=== PATIENT | male | born 1960 | race Caucasian/White ===

== ENCOUNTER → 2017-12-11 09:17 | Outpatient (CLI) | payer OTHER, MEDICARE ==
[2015-01-19 09:48] VITALS: BMI 36.7
[~2017-12-11 09:17] MED LIST: AMBIEN10 MG PO; BACTROBAN NASAL1 GM NASAL; COLACE100 MG PO; DILAUDID8 MG PO; ELIQUIS2.5 MG PO; LEVOTHROID75 MCG PO; LORCET 10/650 T1 TAB PO; MULTI-DAY VITAM1 TAB PO; PERCOCET 10/3251 TA1 PO; PRINZIDE 20/12.1 TAB PO; SOMA350 MG PO; VITAMIN D2000 UNIT; VITAMIN D2000 UNIT PO; XANAX1 MG PO
== END | disposition home or self-care (01) ==
LOC: D.MRI 09:17
DX: M25.552 Pain in left hip (principal)

== ENCOUNTER → 2018-01-12 08:38 | Outpatient (CLI) | payer OTHER, MEDICARE | END | disposition home or self-care (01) | LOC: D.SP 08:38 | DX: M25.552 Pain in left hip (principal); G89.29 Other chronic pain; Z01.812 Encounter for preprocedural laboratory examination ==

== ENCOUNTER → 2018-04-13 12:17 | Outpatient (CLI) | payer OTHER, MEDICARE ==
[2015-01-19 09:48] VITALS: BMI 36.7
--- NOTE | ~2018-04-13 | HEMODYNAMI ---
PATIENT:YESENIA BYRNES MEDICAL RECORD: [id number] : 58 LOCATION:[facility] ADMISSION DATE: 04/13/18 Generatedon:04/13/201813:02 Patient name: YESENIA BYRNES Patient #: [id number] SSN: DO B: 1960 Date of study: 04/13/2018 Page: Of Hemodynamic Procedure Report Patient Data Patient Demographics Procedure consent was obtained First Name: YESENIA Gender: Male Last Name: FITZ : 1960 Middle Initial: ROSANNA Age: 58 year(s) Patient #: [id number] Race: Unknown Additional ID: [id number] Contact details [address]: [address] [place] [address] [place] State: [place] City: [place] Zip code: [address] Past Medical History Allergies: No known allergies Admission Admission Data Admission Date: 04/13/2018 Admission Time: 12:17 Procedure Procedure Types Cath Procedure Peripheral Cath Diagnostic Procedure Miscellaneous Aspiration/Injection (Joint) Procedure Description Procedure Date Procedure Date: 04/13/2018 Procedure Start Time: 12:48 Procedure Staff Name Function Charlie Pope MD Performing Physician Jill Cross RT Filter Washer And Presser Vivi Martinez RN Nurse Francisco J Denton RT Scrub Procedure Data Cath Procedure Fluoroscopy Diagnostic fluoroscopy Total fluoroscopy Time: 0 time: 0 min min Diagnostic fluoroscopy Total fluoroscopy dose: 0 dose: 0 mGy mGy Hemodynamics Rest Pre Cath Intra NCS Post Cath Procedure Log Time Note 12:37:22 Time tracking: Regular hours (M-F 7:00 - 5:00) 12:37:51 Signed procedure consent form obtained from patient. 12:37:58 Pre-procedure instructions explained to patient. 12:37:58 Pre-op teaching completed and patient verbalized understanding. 12:38:26 Left Hip was prepped with chlora-prep and draped in sterile fashion. 12:38:33 Is patient on blood thinner?No 12:38:50 Patient allergic to No known allergies 12:38:59 - 12:45:39 Physician arrived 12:47:41 --------ALL STOP TIME OUT------ 12:47:42 Final Timeout: patient, procedure, and site verified with staff and physician. All members of the team are in agreement. 12:48:06 Procedure started. 12:48:07 Full Disclosure recording started 12:48:17 Local anesthetic to Left Hip with Lidocaine 1% by Charlie Pope MD.INITIAL ACCESS ONLY 12:58:30 Procedure ended.(Physican Out) 13:01:03 Fluoroscopy time 00.00 minutes. 13:01:06 Fluoroscopy dose: 0 mGy 13:01:06 Flurop Dose total: 0 13:01:12 Procedure and supply charges have been captured, reviewed, submitted an d are correct. Signature Audit [place] Stage Time Signature Unsigned Intra-Procedure 04/13/2018 Jill Cross 1:02:41 PM RT(R) [facility] [address] [place] [address]
== END | disposition home or self-care (01) ==
LOC: D.SP 04-06 13:00 → D.RAD 13:00 → D.SP 13:00
PROVIDERS: ATTEND Clinical Nurse Specialist Family Health
DX: M16.12 Unilateral primary osteoarthritis, left hip (principal)

== ENCOUNTER → 2018-04-17 11:12 | Outpatient (CLI) | payer OTHER, MEDICARE ==
[2015-01-19 09:48] VITALS: BMI 36.7
== END | disposition home or self-care (01) ==
LOC: D.MRI 11:12
PROVIDERS: ATTEND Clinical Nurse Specialist Family Health
DX: M25.511 Pain in right shoulder (principal)

== ENCOUNTER 2018-05-10 09:43 | Day surgery (SDC) | payer OTHER, MEDICARE ==
[~2018-05-10] VITALS: Ht 182.9 cm; Wt 130.2 kg
[~2018-05-10 09:43] MED LIST changes: +ASPIRIN EC81 M1 PO; +FLOMAX0.4 MG PO; +HYDROCODON-ACE1 EA10 PO; +MOVANTIK25 MG PO; +PROSCAR5 MG PO; +THEREMS-M1 TAB PO; +VITAMIN B-121000 MCG PO; +XANAX0.5 MG PO; -XANAX1 MG PO
[2018-05-10 10:13] LABS: HEMATOCRIT 43.5 % (42.0-54.0); HEMOGLOBIN 15.5 g/dL (13.5-17.5); MCH 33.6 pg (26.0-34.0); MCHC 35.6 g/dL (31.0-37.0); MCV 94.4 fL (80.0-100.0); MEAN PLATELET VOLUME 9.2 fL (7.4-10.4); RBC 4.61 10x6/uL (4.20-6.10); RDW 12.6 % (11.5-14.5); WBC 4.6 10x3/uL (4.8-10.8)
[2018-05-10 10:19] LABS: CALC OSMOLALITY 278 mosm/kg (275-300); CALCIUM 9.2 mg/dL (8.5-10.1); CARBON DIOXIDE 27.6 mmol/L (21.0-32.0); CHLORIDE - SERUM 103 mmol/L (98-107); GLUCOSE 107 mg/dL (74-106); POTASSIUM - SERUM 4.1 mmol/L (3.5-5.1); SODIUM 139 mmol/L (136-145); UREA NITROGEN 15 mg/dL (7-18); eGFR NON AFRICAN AMERICAN 81 mL/min (90-120)
[2018-05-10 12:08] VITALS: BP 111/69; Ht 182.9 cm; Wt 130.2 kg
[2018-05-10] MEDS ORDERED: PERCOCET 10-321 EAC1 PO (15:24)
--- NOTE | 2018-05-24 11:33 | OP ---
PATIENT NAME: YESENIA BYRNES MEDICAL RECORD: [id number] :58 LOCATION:[facility] ADMISSION DATE: SURGEON: MAGALIE JOHNSON MD DATE OF OPERATION: 05/10/2018 PREOPERATIVE DIAGNOSES: Rotator cuff tear of the right shoulder with impingement syndrome. POSTOPERATIVE DIAGNOSES: Rotator cuff tear of the right shoulder with impingement syndrome. PROCEDURES: 1. Open rotator cuff repair. 2. Arthroscopic distal clavicle excision done through separate incision. 3. Arthroscopic subacromial decompression with acromioplasty and bursectomy. SURGEON: Magalie Johnson MD FLAT DRIER: ARBEN Moser INTRAOPERATIVE COMPLICATIONS: None. SUMMARY OF PATHOLOGIC FINDINGS: The patient unfortunately had very large rotator cuff tear more so than was appreciated on the MR, requiring a mini arthrotomy for better repair and double row fixation laterally. OPERATIVE SUMMARY IN DETAIL: After obtaining the appropriate preoperative orthopedic surgery consent as well as anesthetic consultation, evaluation, and clearance, the patient was brought to the operating room and placed on the operating table in supine position. After general laryngeal mask airway was administered, the patient was placed in left lateral decubitus position. All pressure points were well padded to include down leg peroneal pad as well as axillary roll. The patient was held firmly to the operating table using the vacuum pack suction system, that thing. The patient's right upper extremity and shoulder were then prepped and draped in routine sterile fashion. The arm was held in Arthrex traction boom at 30 degrees of forward flexion, 30 degrees of abduction with 10 pounds of traction laterally. Arthroscopy was established in the glenohumeral joint from posterior portal. Anterior portal was established in the anterior safe interval. Diagnostic arthroscopy showed the patient to have very large rotator cuff tear. Biceps tendon was still in relatively good condition with some tendinopathy; however, no full thickness tearing. Transarthroscopic rotator cuff tear portal was created through which decortication was carried out along with debridement of portions of nonviable-appearing rotator cuff tissue. Attention then turned to the subacromial space. While on subacromial space, the [place] tissue ablation system was utilized to denude the undersurface of the acromion of all soft tissue elements and released the coracoacromial ligament. A 5-0 barrel bur was used for acromioplasty at the level of acromioclavicular joint. Then under separate arthroscopic anterior portal under direct arthroscopic visualization, distal clavicle was excised for 1 cm. Having completed this, attention was then turned to the rotator cuff. Further evaluation and further decortication, then made the decision to proceed with open repair as the split apex was approximately at the labral edge. Small incision was made and then the labrum was reapproximated with regular FiberWire in a baseball stitch fashion. Further decortication was again carried out and then an Arthrex SpeedBridge was utilized OPERATIVE REPORT [id number] YESENIA BYRNES with double row fixation for excellent fixation of the rotator cuff over the supraspinatus tendon. At this point, the small arthrotomy was closed with #2 Vicryl followed by skin kriss, T3 in the ER. Sterile dressings were applied. The patient was awakened and taken to the recovery room in stable condition. All final needle and sponge counts were correct. TRANSINT:[id number] Voice Confirmation ID: [id number] DOCUMENT ID: [id number] ALEX MORGAN, MAGALIE PATHAK at 1133 CC: [id number] DICTATION DATE: 05/23/18 1735 COMMUNITY OUTREACH ADVOCATE: 05/24/18 0433 [facility] 05/10/18 [place] [id number] [place] [address]
== END 2018-05-10 18:05 | disposition home or self-care (01) ==
LOC: D.OPS 09:43 → D.PAN 14:30 → D.OPS 15:30
PROVIDERS: Anesthesiology; ATTEND Orthopaedic Surgery
DX: M75.111 Incomplete rotator cuff tear or rupture of right shoulder, not specified as traumatic (principal); M75.41 Impingement syndrome of right shoulder; Z01.812 Encounter for preprocedural laboratory examination

== ENCOUNTER → 2018-06-25 06:44 | Outpatient (CLI) | payer OTHER, MEDICARE ==
[2018-05-10 12:08] VITALS: BMI 39.0
[~2018-06-25 06:44] MED LIST changes: +PERCOCET 10-321 EAC1 PO
== END | disposition home or self-care (01) ==
LOC: D.MRI 06-22 09:00
PROVIDERS: ATTEND Orthopaedic Surgery
DX: M25.512 Pain in left shoulder (principal)

== ENCOUNTER 2018-07-17 08:00 | Outpatient (CLI) | payer OTHER, MEDICARE ==
[2018-05-10 12:08] VITALS: BMI 39.0
[2018-07-17] MEDS ORDERED: SOMA350 MG PO (09:42)
[2018-07-17 10:29] LABS: HEMATOCRIT 39.8 % (42.0-54.0); HEMOGLOBIN 13.9 g/dL (13.5-17.5); MCH 32.4 pg (26.0-34.0); MCHC 34.9 g/dL (31.0-37.0); MCV 92.8 fL (80.0-100.0); MEAN PLATELET VOLUME 9.4 fL (7.4-10.4); RBC 4.29 10x6/uL (4.20-6.10); RDW 13.2 % (11.5-14.5); WBC 3.7 10x3/uL (4.8-10.8)
[2018-07-17 10:38] LABS: CALC OSMOLALITY 272 mosm/kg (275-300); CALCIUM 9.8 mg/dL (8.5-10.1); CARBON DIOXIDE 31.2 mmol/L (21.0-32.0); CHLORIDE - SERUM 101 mmol/L (98-107); GLUCOSE 110 mg/dL (74-106); POTASSIUM - SERUM 4.2 mmol/L (3.5-5.1); SODIUM 136 mmol/L (136-145); UREA NITROGEN 13 mg/dL (7-18); eGFR NON AFRICAN AMERICAN 81 mL/min (90-120)
== END 2018-07-17 08:01 | disposition home or self-care (01) ==
LOC: D.OPS 08:00 → D.PAN 07-19 07:30 → EDSTATUS 07-19 07:30
PROVIDERS: Anesthesiology; ATTEND Orthopaedic Surgery
DX: M75.122 Complete rotator cuff tear or rupture of left shoulder, not specified as traumatic (principal); S43.491A Other sprain of right shoulder joint, initial encounter; X58.XXXA Exposure to other specified factors, initial encounter

== ENCOUNTER → 2018-08-03 09:28 | Outpatient (CLI) | payer OTHER, MEDICARE ==
[2018-05-10 12:08] VITALS: BMI 39.0
--- NOTE | ~2018-08-03 | EC ---
PATIENT:YESENIA BYRNES DATE OF SERVICE: 08/03/18 SEX: M MEDICAL RECORD: [id number] DATE OF : 58 LOCATION:[facility] AGE OF PATIENT: 58 ADMISSION DATE: 08/03/18 REFERRING PHYSICIAN: INTERPRETING PHYSICIAN: JASON MCDONOUGH MD ECHOCARDIOGRAM REPORT ECHO CHARGES 4 ECHO COMPLETE Date: 08/03/18 CLINICAL DIAGNOSIS: CP/ABNORMAL EKG/MURMUR H/O HTN ECHOCARDIOGRAPHIC MEASUREMENTS (adult normal given) AC root (d.<3.7cm) 4.2 cm LV Septum d (<1.2 cm> 1.8 cm Valve Excursion 2.4 cm LV Septum (systole) 2.2 cm Left Atria (s.<4.0cm> 4.5 cm LVPW d(<1.2cm) 1.4 cm RV (d.<2.3cm) 3.0 cm LVPW (sytole) 2.2 cm LV diastole(<5.6CM) 6.6 cm MV E-F(>70mm/sec) cm LV systole 4.7 cm LVOT Diameter 2.3 cm MV exc.(>10mm) cm Est.ejection fraction (50-75%) % DOPPLER: LVIT cm/sec A 65.0 cm/sec E 78.0 cm/sec LA cm/sec RVSP mmHg LVOT 92.0 cm/sec AOP1/2T m/s Asc. Ao 101 cm/sec RVOT 61.0 cm/sec RA cm/sec PA 97.0 cm/sec AV Gradient Peak 4.1 mmHg AV Mean 2.3 mmHg AV Area 3.6 cm MV Gradient Peak 3.0 mmHg MV Mean 1.1 mmHg MV Area cm COMMENTS: OP - HC Supervisor Newspaper Deliveries: 1 CHACHO CARL Floor Nurse: 3 Dr. Gudino TAPE# PACS Pericardial Effusion N DATE OF SERVICE: 08/03/2018 Adequate 2-D echo, color-flow and spectral Doppler, and M-mode. LVH is present. LV internal dimensions are normal. Wall motion is normal. EF is greater than or equal to 55%. Aortic valve is sclerotic. There is no evidence of stenosis by Doppler interrogation. Left atrium is dilated at 4.5 cm. Mitral valve shows no prolapse. Trace MR. Right-sided chambers are grossly normal. Trace TR. ECHOCARDIOGRAM REPORT [id number] YESENIA BYRNES TRANSINT:[id number] Voice Confirmation ID: [id number] DOCUMENT ID: [id number] JASON MCDONOUGH MD CC: [id number] DICTATION DATE: 08/06/18 1356 DIRECTOR CLINICAL INFORMATION SERVICES: 08/06/18 1608 DEP CLI 08/03/18 [place] [id number] [place] [id number]
--- NOTE | 2018-08-06 09:50 | ST ---
PATIENT:YESENIA HATFIELD MEDICAL RECORD: [id number] SEX: M LOCATION:[facility] ORDER #: ADMISSION DATE: 08/03/18 AGE OF PATIENT: 58 REFERRING PHYSICIAN: INTERPRETING PHYSICIAN: SHANEKA MATTSON MD DATE OF SERVICE: 08/03/2018 INDICATION: Angina, hypertension, and hyperlipidemia. Mr. Hatfield was exercised on standard Lexiscan protocol with 27 mCi of sestamibi injected at peak stress 9 mCi used previously for rest images. FINDINGS: Gated SPECT reveals preserved ejection fraction at 61% with good wall motion and thickening and brightening throughout all segments. SPECT imaging: Cardiolite was used as myocardial perfusion agent. There is reversibility inferiorly. This includes the basal, mid apical, and inferior segments. The degree of reversibility is mild. The amount of myocardial involved is small to moderate. OVERALL IMPRESSION: 1. This is low to intermediate risk nuclear stress test with reversible ischemia inferiorly. 2. Gated SPECT reveals preserved ejection fraction at 61%. In this patient with ongoing symptomatology, the current scan does suggest presence of hemodynamically significant coronary artery disease. TRANSINT:[id number] Voice Confirmation ID: [id number] DOCUMENT ID: [id number] cc: Phi Leary SHANEKA MATTSON MD at 0950 CC: JED ACHARYA MD and PHI LEARY [id number] DICTATION DATE: 08/03/18 1418 BRIM GREASER OPERATOR: 08/03/18 2357 DEP CLI 08/03/18 [facility] [address] [place] [address]
== END | disposition home or self-care (01) ==
LOC: D.HCCARDIO 09:28
PROVIDERS: ATTEND Internal Medicine Interventional Cardiology
DX: I20.9 Angina pectoris, unspecified (principal)

== ENCOUNTER 2018-08-20 10:20 | Outpatient (CLI) | payer OTHER, MEDICARE ==
[~2018-08-20] VITALS: Ht 182.9 cm; Wt 136.4 kg
--- NOTE | ~2018-08-20 | HEMODYNAMI ---
PATIENT:YESENIA BYRNES MEDICAL RECORD: [id number] : 58 LOCATION:[facility] ADMISSION DATE: 08/20/18 Generatedon:08/20/201813:20 Patient name: YESENIA BYRNES Patient #: [id number] SSN: [id number] : 1960 Date of study: 08/20/2018 Page: Of Hemodynamic Procedure Report Patient Data Patient Demographics Procedure consent was obtained First Name: YESENIA Gender: Male Last Name: FITZ : 1960 Middle Initial: ROSANNA Age: 58 year(s) Patient #: [id number] Race: SSN: [id number] Additional ID: [id number] Contact details Address: [address] [place] [address] [place] State: [place] City: [place] Zip code: [address] Past Medical History Allergies: No known allergies Admission Admission Data Admission Date: 08/20/2018 Admission Time: 10:20 Arrival Date: 08/20/2018 Arrival Time: 13:00 Admit Source: Other Insurance Payor: Private health insurance Height (in.): 72.05 BSA: 2.53 (m2) Height (cm.): 183 BMI: 40.61 (kg/m2) Weight (lbs.): 299.83 Weight (kg.): 136 Lab Results Lab Result Date: 08/20/2018 Lab Result Time: 0:00 Biochemistry Name Units Result Min Max BUN mg/dl 11 --(-*--)-- 7 18 Creatinine mg/dl 0.9 --(-*--)-- 0.6 1.3 CBC Name Units Result Min Max Hemoglobin g/dl 13.9 --(*---)-- 13.5 17.5 Procedure Procedure Types Cath Procedure Diagnostic Procedure C C w/Coronaries Procedure Description Procedure Date Procedure Date: 08/20/2018 Procedure Start Time: 13:08 Procedure End Time: 13:17 Procedure Staff Name Function Sean Burnett MD Performing Physician Ling Modi RT Monitor Hill Zapata RT Scrub Analilia Dickson RT Scrub Jerri Giang RN Nurse Ant Hill RN Nurse Procedure Data Cath Procedure Fluoroscopy Diagnostic fluoroscopy Total fluoroscopy Time: 2 time: 2 min min Diagnostic fluoroscopy Total fluoroscopy dose: dose: 1050 mGy 1050 mGy Contrast Material Contrast Material Type Amount (ml) Isovue 300 58 Entry Location Entry Primary Successful Side Size Upsize Upsize Entry Closure Bravo ccessful Closure Location (Fr) 1 (Fr) 2 (Fr) Remarks Device Remarks Radial Right 6 Fr Mechanical artery Short Compression Estimated blood loss: 5 ml Diagnostic catheters Device Type Used For End Catheter Placement DIAGNOSTIC [place] 110cm 5 Multi-vessel Fr catheter ([id number]) Angiography Procedure Complications No complications Procedure Medications Medication Administration Route Dosage Oxygen etCO2 Nasal cannula 2 l/min Lidocaine 2% added to field 20 Heparin Flush Bag added to field 2 bags (1000units/500ml NS) 0.9% NaCl I.V. 100 ml/hr Radial Cocktail added to field 1 syringe (Verapamil 2mg/Nitro 400mcg/Heparin 1500units) Versed I.V. 2 mg Fentanyl I.V. 100 mcg Versed I.V. 2 mg Fentanyl I.V. 100 mcg Hemodynamics Rest BSA: 2.53 (m2) HGB: 13.9 (g/dl) O2 Consumption: Estimated: 293.94 (ml/min) O2 Co nsumption indexed: Estimated:116.18 (ml/min/m) Heart Rate: 66 (bpm) Pressure Samples Time Site Value (mmHg) Purpose Heart Use Rate(bpm) 13:14 LV 44/-3,-15 Snapshot 77 13:15 AO 101/71(82) Pullback 80 Gradients Valve Time Site Site 2 Mean SEP/DFP Peak To Heart Use 1 (mmHg) (sec/min) Peak Rate (mmHg) (bpm) Aortic 13:15 LV AO 0 1 80 101/71(82) Calculations Valve P-P Mean Valve Index Valve Source Name Gradient Area Flow (cm2) Aortic 0 0 Snapshots Pre Cath Intra NCS Post Cath Vital Signs Time Heart Resp SPO2 etCO2 NIBP (mmHg) Rhythm Pain Sedation Rate (ipm) (%) (mmHg) Status Level (bpm) 12:56:46 69 15 96 38.8 148/88(104) NSR 0 (11) 10(A) , No pain 13:01:22 67 19 97 33.6 141/87(108) NSR 0 (11) 10(A) , No pain 13:05:55 66 13 96 15.6 139/85(116) NSR 0 (11) 10(A) , No pain 13:10:27 84 20 96 32.8 128/83(100) NSR 0 (11) 10(A) , No pain 13:14:45 76 17 94 38 133/85(104) NSR 0 (11) 10(A) , No pain Medications Time Medication Route Dose Verified Delivered Reason Notes Effectiveness by by 12:58:58 Oxygen etCO2 2 l/min Sean Sohanie used for Nasal [facility] RN procedure cannula 12:59:07 Lidocaine 2% added 20ml Sean Estrada for local to vial [facility] anesthetic field MD MORGAN 12:59:14 Heparin Flush added 2 bags Sean Estrada used for Bag to [facility] procedure (1000units/500ml field MD MORGAN NS) 12:59:26 0.9% NaCl I.V. 100 Seanbeny Cain Per ml/hr [facility] RN physician 13:03:57 Versed I.V. 2 mg Sean Parryie for sedation [facility] RN, MD 13:04:03 Fentanyl I.V. 100 mcg Sean Cain for sedation [facility] RN, MD 13:07:58 Radial Cocktail added 1 Sean Estrada for (Verapamil to syringe [facility] vasodilation 2mg/Nitro field MD MORGAN 400mcg/Heparin 1500units) 13:09:50 Versed I.V. 2 mg Sean Cain for sedation [facility] RN, MD 13:09:54 Fentanyl I.V. 100 mcg Sean Parryie for sedation [facility] RN, MD Procedure Log Time Note 12:30:50 Informed consent obtained and on chart 12:31:19 Admit Source: Other 12:31:23 Arrival Date: 08/20/2018 1:00:00 PM 12:31:28 Insurance Payor : Private health insurance 12:34:23 Patient Weight : 299.83 lbs 12:34:29 Patient Height : 72.05 inches 12:34:49 Lab Result : Creatinine 0.9 mg/dl 12:34:49 Lab Result : BUN 11 mg/dl 12:34:49 Lab Result : Hemoglobin 13.9 g/dl 12:34:55 Diagnostic Cath Status : Elective 12:35:22 Hill Zapata RT(R) sent for patient. Start room use. 12:35:23 Time tracking: Regular hours (M-F 7:00 - 5:00) 12:35:27 Plan of Care:Hemodynamics will remain stable., Cardiac rhythm will remain stable., Comfort level will be maintained., Respiratory function will remain adequate., Patient/ family verbilizes understanding of procedure., Procedure tolerated without complication., Recovers from procedure without complications.. 12:45:20 Patient received from Pre/Post Procedure Room to CCL 2 Alert and oriented. Tansferred to table in Supine position. 12:45:21 Warm blankets applied, and peña hugger turned on for patient comfort. 12:45:22 Correct patient and procedure confirmed by team. 12:45:23 ECG and BP/O2 sat monitors applied to patient. 12:55:14 Vital chart was started 12:55:15 Baseline sample Acquired. 12:55:18 Rhythm: sinus rhythm 12:55:19 Full Disclosure recording started 12:55:23 H&P Date Dictated: 08/20/2018 Within 30 days and on chart., H&P Addendum completed by physician on day of procedure. (MUST COMPLETE FOR ALL OUTPATIENTS). 12:55:24 Pre-procedure instructions explained to patient. 12:55:24 Pre-op teaching completed and patient verbalized understanding. 12:55:26 Family in patients room. 12:55:28 Patient NPO since Midnight. 12:55:29 Is the patient allergic to Iodine/contrast media? No. 12:55:31 Was the patient premedicated? No 12:55:33 Is patient on blood thinner?No 12:55:38 Patient diabetic? No. 12:55:40 Previous problem with sedation/anesthesia? No ? 12:55:41 Snore? Yes 12:55:43 Sleep apnea? Yes 12:55:46 Deviated septum? No 12:55:47 Opens mouth fully? Yes 12:55:47 Sticks out tongue? Yes 12:55:49 Airway obstruction? No ? 12:55:51 Dentures? No ? 12:55:54 Pre procedure: right dorsailis pedis pulse 2+ Normal; easily identifiable; not easily obliterated 12:55:57 Pre procedure: left dorsailis pedis pulse 2+ Normal; easily identifiable; not easily obliterated 12:56:00 Patient pain scale 0/10 ?. 12:56:05 IV patent on arrival in left forearm with 0.9% NaCl at [facility]. 12:56:08 Lab results completed and on chart. 12:56:12 Right groin area was prepped with chlora-prep and draped in sterile fashion 12:56:13 Alarms reviewed by R. N. 12:56:13 Sharps counted by scrub and verified by R.N. 12:57:43 Physician arrived 12:57:43 --------ALL STOP TIME OUT------ 12:57:43 Final Timeout: patient, procedure, and site verified with staff and physician. All members of the team are in agreement. 12:57:44 Right Radial & Right Groin site verified by team. 12:57:52 Fire Safety Assessment: A--An alcohol-based skin anteseptic being used preoperatively., C--Open oxygen or nitrous oxide is being used., D--An ESU, laser, or fiber-optic light is being used. 12:57:55 Physical assessment completed. ASA score P 2 - A patient with mild systemic disease as per Sean Burnett MD. 12:58:58 Oxygen 2 l/min etCO2 Nasal cannula was administered by Ant Hill RN; used for procedure; 12:59:07 Lidocaine 2% 20ml vial added to field was administered by Sean Burnett MD; for local anesthetic; 12:59:14 Heparin Flush Bag (1000units/500ml NS) 2 bags added to field was administered by Sean Burnett MD; used for procedure; 12:59:14 1) 90+ Normal kidney functon but urine findings or structural abnormalities or genetic trait point to kidney disease. 12:59:26 0.9% NaCl 100 ml/hr I.V. was administered by Ant Hill RN; Per physician; 13:00:48 Maximum allowable contrast does (3.7 X eGFR X 0.75)249 ml. 13:00:51 Sedation plan: IV Moderate Sedation Medication:Versed, Fentanyl 13:01:10 Use device set Radial Dx or PCI 13:01:11 ACIST Syringe (58630) opened to sterile field. 13:01:11 Medline Cath Pack ([id number]) opened to sterile field. 13:01:12 Bag Decanter () opened to sterile field. 13:01:12 ACIST Hand Control (47288) opened to sterile field. 13:01:13 ACIST Manifold (60910) opened to sterile field. 13:01:13 Tegaderm 4 x 4 (1626W) opened to sterile field. 13:01:15 MBrace Wrist Support (756885924) opened to sterile field. 13:01:17 SHEATH 6FR RAIN (8394947) opened to sterile field. 13:01:18 EMERALD Guide Wire (502-393) opened to sterile field. 13:03:57 Versed 2 mg I.V. was administered by Ant Hill RN; for sedation; 13:04:03 Fentanyl 100 mcg I.V. was administered by Ant Hill RN; for sedation; 13:07:58 Radial Cocktail (Verapamil 2mg/Nitro 400mcg/Heparin 1500units) 1 syringe added to field was administered by Sean Burnett MD; for vasodilation; 13:08:25 Procedure started. 13:08:32 Local anesthetic to right radial artery with Lidocaine 2% by Sean Burnett MD.INITIAL ACCESS ONLY 13:08:42 A 6 Fr Short sheath was inserted into the Right Radial artery 13:08:50 A DIAGNOSTIC [place] 110cm 5 Fr catheter (121827) was advanced over the wire and used for Multi-vessel Angiography. 13:09:50 Versed 2 mg I.V. was administered by Ant Hill RN; for sedation; 13:09:54 Fentanyl 100 mcg I.V. was administered by Ant Hill RN; for sedation; 13:10:49 LCA angiography performed. 13:10:52 Injector settings: Ml/sec: 3, Volume: 6, 13:13:13 RCA angiography performed. 13:13:38 Injector settings: Ml/sec: 3, Volume: 6, 13:14:47 LV hemodynamics recorded. 13:14:48 LV gram done using ESPINOZA 13:14:51 Injector settings: Ml/sec: 5, Volume: 15, 13:15:08 EF : 55 % 13:15:11 Catheter removed. 13:15:50 TR BAND Standard ([id number]) opened to sterile field. 13:16:02 Sheath removed intact; hemostasis achieved with Mechanical Compression to the Right Radial artery. 13:16:04 Procedure ended.(Physican Out) 13:16:47 Fluoroscopy time 02.00 minutes. 13:16:52 Fluoroscopy dose: 1050 mGy 13:16:52 Flurop Dose total: 1050 13:16:58 Contrast amount:Isovue 300 58ml. 13:17:01 Sharps counted by scrub and verified by R.N. 13:17:06 Insertion/operative site no bleeding no hematoma. 13:17:13 Post right radial artery:stable 13:17:14 Post Procedure Pulses reassessed and unchanged 13:17:17 Post procedure rhythm: unchanged. 13:17:23 Estimated blood loss: 5 ml 13:17:24 Post procedure instruction explained to patient.Patient verbalizes understanding. 13:17:24 Patient needs reinforcement of post procedure teaching. 13:17:25 Procedure and supply charges have been captured, reviewed, submitted and are correct. 13:17:35 Procedure Complication : No complications 13:17:38 Vital chart was stopped 13:17:38 See physician's report for complete and final results. 13:17:41 Report given to Pre/Post Procedure Room. 13:17:45 Patient transfered to Pre/Post Procedure Room with Stretcher. 13:17:47 Procedure ended. 13:17:47 Full Disclosure recording stopped 13:17:52 End room use (Document Last) 13:20:35 TR band inflated with 10cc of air. Device Usage Item Name Manufacture Quantity Catalog Hospital Part Current Minima l Lot# / Number Charge Number Stock Stock Serial# Code ACIST Acist 1 45010 755261 621423 272435 20 Syringe Medical (98444) Systems Inc Medline Medline 1 [id number] 644266 26514 974033 5 Cath Pack ([id number]) Bag Microtek 1 264211 20232 173650 5 Decanter Medical Inc. () ACIST Hand Acist 1 38016 074136 172318 174467 5 Control Medical (26534) Systems Inc ACIST Acist 1 58610 169752 011840 691777 5 Manifold Medical (23703) Systems Inc Tegaderm 4 3M 1 1626W 803409 145220 509320 5 x 4 (1626W) MBrace Advanced 1 140-0250-00 652397 59969 534105 5 Wrist Vascular Support Dynamics ([id number]) SHEATH 6FR Cardinal 1 6805613 903439 2718131 985718 5 RAIN Health (3238434) EMERALD Cardinal 1 418-149 935445 706610 482661 5 Guide Wire Health (206-724) DIAGNOSTIC Terumo 1 40-7383 400082 315212 019338 5 [place] 110cm 5 Fr catheter (478463) TR BAND Terumo 1 LFS36-CHV 721612 608804 627949 40 Standard ([id number]) Signature Audit [place] Stage Time Signature Unsigned Intra-Procedure 08/20/2018 Ling Modi 1:20:48 PM RT(R) Signatures Performing Physician : Signature : Sean Burnett MD Date : Time : Monitor : Ling Modi RT Signature : Date : Time : Nurse : Jerri Giang RN Signature : Date : Time : Nurse : Ant Hill RN Signature : Date : Time : [facility] [address] [place] [address]
--- NOTE | ~2018-08-20 | OP ---
PATIENT NAME: YESENIA BYRNES MEDICAL RECORD: [id number] :58 LOCATION:[facility] ADMISSION DATE: SURGEON: JASON MCDONOUGH MD DATE OF OPERATION: 08/20/2018 PROCEDURE: Left heart catheterization, selective coronary angiography, right radial approach. CATHETERS: Radial sheath and [place] catheter. The procedure was well tolerated. The patient was returned to [place]. Sheath was removed. TR band was placed. Left ventriculography in 30-degree ESPINOZA view: Normal wall motion. Normal systolic function. CORONARY ANATOMY: LEFT MAIN: Left main is free of disease. LAD: Free of disease in the diagonal system. Circumflex: Free of disease in the marginal system. RIGHT CORONARY ARTERY: Dominant artery, gives rise to PDA, free of disease. IMPRESSION: Normal LV systolic function. Normal coronary anatomy. TRANSINT:[id number] Voice Confirmation ID: [id number] DOCUMENT ID: [id number] JASON MCDONOUGH MD CC: [id number] DICTATION DATE: 08/20/18 1432 SCUBA DIVER: 08/20/18 1616 DEP CLI 08/20/18 [id number] [place] [address]
[2018-08-20 10:59] VITALS: BP 114/76; Ht 182.9 cm; Wt 136.4 kg
[2018-08-20 11:10] LABS: BASOPHILS 0.3 % (0-2); EOSINOPHILS 2.5 % (0-7); HEMATOCRIT 38.3 % (42.0-54.0); HEMOGLOBIN 13.9 g/dL (13.5-17.5); LYMPHOCYTES 36.5 % (15-50); MCH 32.9 pg (26.0-34.0); MCHC 36.3 g/dL (31.0-37.0); MCV 90.5 fL (80.0-100.0); MEAN PLATELET VOLUME 9.5 fL (7.4-10.4); MONOCYTES 8.9 % (2-11); NEUTROPHILS 50.8 % (40-80); PLATELET COUNT 143 10x3/uL (130-400); RBC 4.23 10x6/uL (4.20-6.10); RDW 13.1 % (11.5-14.5); WBC 3.2 10x3/uL (4.8-10.8)
[2018-08-20 11:20] LABS: CALC OSMOLALITY 276 mosm/kg (275-300); CALCIUM 9.5 mg/dL (8.5-10.1); CARBON DIOXIDE 25.2 mmol/L (21.0-32.0); CHLORIDE - SERUM 104 mmol/L (98-107); CREATININE - SERUM 0.9 mg/dL (0.6-1.3); GLUCOSE 103 mg/dL (74-106); POTASSIUM - SERUM 3.7 mmol/L (3.5-5.1); SODIUM 139 mmol/L (136-145); UREA NITROGEN 11 mg/dL (7-18); eGFR NON AFRICAN AMERICAN > 90 mL/min (90-120)
--- NOTE | 2018-08-20 13:30 | NUR ---
PT RECEIVED VIA STRETCHER FROM FOUNDER PRESIDENT AND CEO FOR RECOVERY. PT SLIGHTLY DROWSY BUT AWAKE. HR NSR RATE 73, BP 120/81, O2 PLACED AT 2L/NC, SAT 97. TR BAND AND IMMOBILIZER TO R WRIST, DRESSING CDI NO BLEEDING OR SWELLING NOTED. ARM PINK AND WARM, CAP REFILL BRISK. HOB ELEVATED PER PT REQUEST, WATER SERVED. DR GUILLEN AT BEDSIDE TALKING W PT AND REGARDING PLAN OF CARE AND PROCECURE RESULTS. PT DENIES PAIN OR DISCOMFORT, CALL LIGHT IN REACH
--- NOTE | 2018-08-20 13:45 | NUR ---
PT AWAKE RESTING COMFORTABLY, DENIES PAIN OR NEEDS. TR BAND IN PLACE, DRESSING CDI NO BLEEDING OR SWELLING NOTED. EXTREMITY WARM AND PINK, CAP REFILL BRISK. SANDWICH TRAY AND COLA SERVED. AT BEDSIDE, CALL LIGHT IN REACH
--- NOTE | 2018-08-20 14:16 | NUR ---
4CC AIR REMOVED FROM TR BAND, NO BLEEDING OR SWELLING NOTED. PT DENIES PAIN OR NEEDS AT THIS TIME. CALL LIGHT IN REACH
--- NOTE | 2018-08-20 14:41 | NUR ---
PT RESTING W/O COMPLAINTS WATCHING TV. TR BAND AND IMMOBILIZER IN PLACE, NO BLEEDING OR SWELLING NOTED. 3CC AIR REMOVED, NO BLEEDING NOTED. CALL LIGHT IN REACH. R ARM PINK AND WARM, CAP REFILL BRISK
--- NOTE | 2018-08-20 15:05 | NUR ---
DISCHARGE INSTRUCTIONS REVIEWED W PT AND , BOTH VERBALIZED UNDERSTANDING. IV REMOVED W CATH INTACT, MONITORS REMOVED AND PT UP TO DRESS.
--- NOTE | 2018-08-20 15:14 | NUR ---
TR BAND AND REMAINING AIR REMOVED, NO BLEEDING OR SWELLING NOTED. IMMOBILIZER ON.
--- NOTE | 2018-08-20 15:16 | NUR ---
PT DISCHARGED VIA WC TO PRIVATE VEHICLE WITH ALL BELONGINGS
== END 2018-08-20 15:15 | disposition home or self-care (01) ==
LOC: D.CATH 10:20
PROVIDERS: ATTEND Internal Medicine Interventional Cardiology
DX: I20.9 Angina pectoris, unspecified (principal); Z01.812 Encounter for preprocedural laboratory examination

== ENCOUNTER 2018-09-03 08:45 | Day surgery (SDC) | payer OTHER, MEDICARE ==
[2018-08-31 10:28] LABS: HEMATOCRIT 38.7 % (42.0-54.0); MCH 32.9 pg (26.0-34.0); MCHC 36.2 g/dL (31.0-37.0); MCV 91.1 fL (80.0-100.0); MEAN PLATELET VOLUME 9.6 fL (7.4-10.4); RBC 4.25 10x6/uL (4.20-6.10); RDW 13.3 % (11.5-14.5); WBC 2.9 10x3/uL (4.8-10.8)
[2018-08-31 14:06] LABS: CALC OSMOLALITY 271 mosm/kg (275-300); CALCIUM 8.8 mg/dL (8.5-10.1); CARBON DIOXIDE 25.6 mmol/L (21.0-32.0); CHLORIDE - SERUM 102 mmol/L (98-107); CREATININE - SERUM 0.9 mg/dL (0.6-1.3); GLUCOSE 102 mg/dL (74-106); POTASSIUM - SERUM 3.9 mmol/L (3.5-5.1); SODIUM 136 mmol/L (136-145); UREA NITROGEN 12 mg/dL (7-18); eGFR NON AFRICAN AMERICAN > 90 mL/min (90-120)
[~2018-09-03] VITALS: Ht 182.9 cm; Wt 136.1 kg
[2018-09-03 09:21] VITALS: BP 128/86; Ht 182.9 cm; Wt 136.1 kg
[2018-09-03] MEDS ORDERED: DILAUDID4 MG PO (12:20)
--- NOTE | 2018-09-03 13:29 | NUR ---
1300 - PT EXHIBTS S/S OF HEMIDIAPHRAM, DR ORLANDO TO BEDSIDE. CXR, 12 LEAD, UPDRAFT ORDERED.
--- NOTE | 2018-09-03 15:06 | NUR ---
BP AT 1450: 81/45. INFORMED DR. JOHNSON OF PT'S BP AND HE SAID TO LET ANESTHESIA TEAM KNOW. ATTEMPTING TO INFORM ANESTHESIA TEAM BUT NO ONE IS ANSWERING MY CALLS. WILL CONTINUE TO MONITOR AND CALL
--- NOTE | 2018-09-03 15:39 | NUR ---
DC INSTRUCTIONS GIVEN TO PT/FAMILY. STATE UNDERSTANDING. DC'D IV CATH FULLY INTACT. PT LEFT UNIT VIA WC AT 1532
--- NOTE | 2018-09-04 07:16 | OP ---
PATIENT NAME: YESENIA BYRNES MEDICAL RECORD: [id number] :58 LOCATION:[facility] ADMISSION DATE: SURGEON: MAGALIE JOHNSON MD DATE OF OPERATION: 09/03/2018 PREOPERATIVE DIAGNOSES: Rotator cuff tear of the left shoulder with impingement syndrome. POSTOPERATIVE DIAGNOSES: Rotator cuff tear of the left shoulder with impingement syndrome plus substantial labral tearing and severe biceps tendinitis and biceps tearing. PROCEDURES: 1. Open rotator cuff repair of the left shoulder. 2. Arthroscopic labral debridement. 3. Arthroscopic biceps tenotomy. 4. Arthroscopic distal clavicle excision done through separate incision - 1 cm. 5. Arthroscopic subacromial decompression, acromioplasty and bursectomy. SURGEON: Magalie Johnson MD PSYCHOPAEDIC NURSE: Seun Golden. INTRAOPERATIVE COMPLICATIONS: None. 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 The articular arthritis was grade III primarily with a few areas of grade IV labrum was torn. The biceps tendon was also torn. The rotator cuff was torn at the anterior supraspinatus tendon. The decision to do a mini arthrotomy for open rotator cuff tear was made after it was felt that it was retracted substantially. This was treated with an Arthrex SpeedBridge with medial and lateral row fixation. The patient had a sharply downward sloping acromion with excoriation of the coracoacromial ligament as well as grade IV chondromalacia of the acromioclavicular joint. OPERATIVE SUMMARY IN DETAIL: After obtaining the appropriate preoperative orthopedic surgery consent as well as anesthetic consultation, evaluation and clearance, the patient was brought to the operating room and placed on the operating table in supine position. After general laryngeal mask airway was administered, the patient was placed in a right lateral decubitus position. All pressure points were well padded to include down leg peroneal pad as well as axillary roll. The patient was held firmly to the operating table using the vacuum pack suction system. Left upper extremity and shoulder were then prepped and draped in routine sterile fashion. The arm was held in the Arthrex traction boom at 30 degrees of forward flexion, 30 degrees of abduction with 10 pounds of traction laterally. Arthroscopy was established in the glenohumeral joint from the posterior portal. Anterior portal was established in the anterior safe interval. Diagnostic arthroscopy did show the patient to have severe labral tearing as well as biceps full-thickness tearing. The rotator cuff had substantial PASTA lesion that was noted. At this point, attention was made to turn to the subacromial space. While in the subacromial space, the rotator cuff tearing was noted. Arthrex [place] tissue ablation system was utilized to denude the undersurface of the acromion of all soft tissue elements and released the OPERATIVE REPORT [id number] YESENIA BYRNES coracoacromial ligament. A 5-0 barrel bur was used for acromioplasty at the level of acromioclavicular joint. Having completed this, the distal clavicle was excised arthroscopically through a separate anterior portal under direct arthroscopic visualization for 1 cm. Next, attention was turned to the rotator cuff. The rotator cuff was seen to be substantially laminar torn. For this reason, a mini arthrotomy was performed and the direct visualization of the greater tuberosity was noted. The resector was then utilized to complete decortication of the supraspinatus tendinous footprint. Mediolateral fixation was then achieved with a crisscross fashion using the Arthrex SpeedBridge kit. This resulted in excellent reapproximation of the rotator cuff. Having completed this, arthroscopy was reestablished in the glenohumeral joint and again under direct visualization the labrum was debrided and chondroplasty of the humeral head was performed to optimize results of this arthroscopy. Having completed this, the biceps was tenotomized using the [place] surface tissue ablation system. I did not think tenodesis was reasonable given the appearance of the patient's biceps tendon into the groove. After the tenotomy, arthroscopy portals along with mini arthrotomy were closed by Seun Golden. Sterile dressings were applied. The patient was awakened, taken to the recovery room in stable condition. All final needle and sponge counts were correct. TRANSINT:[id number] Voice Confirmation ID: [id number] DOCUMENT ID: [id number] ALEX MORGAN, MAGALIE PATHAK at 0716 CC: [id number] DICTATION DATE: 09/04/18608 CO FOUNDER: 09/04/18658 [facility] 09/03/[address] [facility] [address] [id number]
== END 2018-09-03 15:32 | disposition home or self-care (01) ==
LOC: D.OPS 08:45 → D.PAN 14:45 → D.OPS 14:45
PROVIDERS: Anesthesiology; ATTEND Orthopaedic Surgery
DX: M75.122 Complete rotator cuff tear or rupture of left shoulder, not specified as traumatic (principal); M75.42 Impingement syndrome of left shoulder; M75.22 Bicipital tendinitis, left shoulder; S46.112A Strain of muscle, fascia and tendon of long head of biceps, left arm, initial encounter; X58.XXXA Exposure to other specified factors, initial encounter; Z01.812 Encounter for preprocedural laboratory examination

== ENCOUNTER → 2018-10-19 08:30 | Outpatient (CLI) | payer OTHER, MEDICARE ==
[2018-09-03 09:21] VITALS: BMI 40.8
[~2018-10-19 08:30] MED LIST changes: +DILAUDID4 MG PO
== END | disposition home or self-care (01) ==
LOC: D.MRI 08:30
PROVIDERS: ATTEND Orthopaedic Surgery
DX: M54.12 Radiculopathy, cervical region (principal)

== ENCOUNTER 2019-03-02 10:04 | Inpatient (IN) | payer OTHER, MEDICARE ==
[~2019-03-02] VITALS: Ht 182.9 cm; Wt 129.5 kg
[~2019-03-02 10:04] MED LIST changes: -LEVOTHROID75 MCG PO; +SYNTHROID100 MCG PO
[2019-03-02] MEDS ORDERED: LOPRESSOR25 MG PO (10:09)
--- NOTE | 2019-03-02 10:15 | NUR ---
PRIOR TO PATIENT'S ARRIVAL, THIS RN TOOK REPORT ON PATIENT FROM NOEMÍ STERN RN AT [facility]. INFORMED THAT PT'S BLOOD PRESSURE WAS 90/60. EMELY LONG, INFORMED WHILE I WAS STILL ON THE PHONE WITH JARRED. EMELY LONG GIVES ORDER TO GET PT'S SYSTOLIC BLOOD PRESSURE > 100 PRIOR TO TRANSPORT AND START BY GIVING 1 LITER NORMAL SALINE. JARRED ACKNOWLEDGES THIS UNDERSTANDING. UPON PT'S ARRIVAL TO [facility], [facility] STATES PT'S BLOOD PRESSURE WAS 85/52 WHEN HE PICKED PATIENT UP FROM [facility]. "SHE WAS PRETTY MUCH HANGING THE FLUIDS WE WERE WALKING OUT." [facility] ALSO REPORTS PT DID NOT RECEIVE CARDIZEM BOLUS OR CARDIZEM DRIP THAT DR. HAN ASKED THE SENDING MD TO GIVE PATIENT. EMELY LONG INFORMED OF THIS UPON PATIENT'S ARRIVAL.
[2019-03-02 10:41] LABS: BASOPHILS 0 % (0-2); EOSINOPHILS 0.6 % (0-7); HEMOGLOBIN 13.6 g/dL (13.5-17.5); IMMATURE GRANULOCYTES 0.9 % (0-5); LYMPHOCYTES 23.9 % (15-50); MCH 33.6 pg (26.0-34.0); MCHC 35.8 g/dL (31.0-37.0); MCV 93.8 fL (80.0-100.0); MEAN PLATELET VOLUME 9.2 fL (7.4-10.4); MONOCYTES 7.7 % (2-11); NEUTROPHILS 66.9 % (40-80); PLATELET COUNT 124 10x3/uL (130-400); RBC 4.05 10x6/uL (4.20-6.10); RDW 12.9 % (11.5-14.5); WBC 4.7 10x3/uL (4.8-10.8)
[2019-03-02 10:59] LABS: CALC OSMOLALITY 272 mosm/kg (275-300); CALCIUM 8.6 mg/dL (8.5-10.1); CARBON DIOXIDE 25.8 mmol/L (21.0-32.0); CHLORIDE - SERUM 102 mmol/L (98-107); CREATININE - SERUM 1.1 mg/dL (0.6-1.3); GLUCOSE 104 mg/dL (74-106); INR 1.03 (0.85-1.17); POTASSIUM - SERUM 3.9 mmol/L (3.5-5.1); PROTIME 13.4 SECONDS (11.6-15.0); SODIUM 136 mmol/L (136-145); UREA NITROGEN 14 mg/dL (7-18); eGFR NON AFRICAN AMERICAN 73 mL/min (90-120)
[2019-03-02 11:16] LABS: ALBUMIN 3.4 g/dL (3.4-5.0); ALKALINE PHOSPHATASE 48 U/L (30-120); ALT (SGPT) 31 U/L (10-68); BILIRUBIN - TOTAL 0.34 mg/dL (0.2-1.3); CREATINE KINASE 46 UL (21-232)
[2019-03-02 11:18] LABS: TROPONIN-I < 0.017 ng/mL (0.000-0.060)
[2019-03-02 12:03] VITALS: BP 97/69
--- NOTE | 2019-03-02 12:34 | NUR ---
RECEIVED PT VIA STRETCHER FROM ER AAOX4 RESP UNLABORED SKIN W/D COLOR WNL IV OF NS PATENT TO LT HAND WITHOUT DIFFICULTY NO REDENESS OR EDEMA NOTED AT SITE PT DENIES SOB OR CHEST PAIN AT THIS TIME WILL CONTINUE TO MONITOR
[2019-03-02] MEDS ORDERED: PERCOCET 10-321 EAC1 PO (13:00)
[2019-03-02] MEDS ORDERED: LISINOPRIL-HCT1 EAC8 PO (13:17)
[2019-03-02 14:57] VITALS: BP 94/60
[2019-03-02 15:23] VITALS: BP 94/60; BMI 38.7
[2019-03-02 16:00] VITALS: BP 115/53
[2019-03-02 20:00] VITALS: BP 106/64
--- NOTE | 2019-03-02 20:00 | NUR ---
REPORT RECIEVED AND INITIAL ROUNDS COMPLETED. PT ALERT/ORIENTED. RESTING IN BED. RIGHT FOOT WITH VLAD WRAP DRESSING IN PLACE. SR/80 PER TELEMETRY. IV TO LEFT HAND WITH NS @ 125ML/HR. REVIEWED PAIN CONTROL, PLAN OF CARE. CALL LIGHT IN REACH.
--- NOTE | 2019-03-02 21:23 | NUR ---
BEDTIME MEDS GIVEN. PAIN PILL FOR LEG/ANKLE/SHOULDER PAIN 09/15 AND AMBIEN TO PROMOTE SLEEP. O2 @ 2L/NC TO REPLACE THAT HE USUALLY HAS CPAP AT HOME.
[2019-03-03] VITALS: BP 99/54
[2019-03-03 04:00] VITALS: BP 102/54
--- NOTE | 2019-03-03 04:39 | NUR ---
RESTING IN BED WITH NO DISTRESS. SR 74 PER TELEMETRY. CPOC. CALL LIGHT IN REACH.
[2019-03-03 05:07] LABS: HEMATOCRIT 33.9 % (42.0-54.0); HEMOGLOBIN 11.6 g/dL (13.5-17.5); MCH 32.6 pg (26.0-34.0); MCHC 34.2 g/dL (31.0-37.0); MCV 95.2 fL (80.0-100.0); MEAN PLATELET VOLUME 9.6 fL (7.4-10.4); PLATELET COUNT 129 10x3/uL (130-400); RBC 3.56 10x6/uL (4.20-6.10); RDW 13.1 % (11.5-14.5)
[2019-03-03 05:08] LABS: WBC 2.9 10x3/uL (4.8-10.8)
[2019-03-03 05:24] LABS: BASOPHILS 2 % (0-2); EOSINOPHILS 1 % (0-7); LYMPHOCYTES 35 % (15-50); MONOCYTES 13 % (2-11); NEUTROPHILS 48 % (40-80); PLATELET ESTIMATE NORMAL
[2019-03-03 05:27] LABS: ALBUMIN 3.1 g/dL (3.4-5.0); BILIRUBIN - TOTAL 0.46 mg/dL (0.2-1.3); CALCIUM 8.5 mg/dL (8.5-10.1); CARBON DIOXIDE 31.2 mmol/L (21.0-32.0); CREATININE - SERUM 1.1 mg/dL (0.6-1.3); PROTEIN - SERUM 7.2 g/dL (6.4-8.2)
--- NOTE | 2019-03-03 05:27 | NUR ---
AM MEDS, PLUS PAIN PILL GIVEN. IVF INFUSING. CALL LIGHT IN REACH.
[2019-03-03 05:29] LABS: ANION GAP 7.3 mmol/L (8-16); POTASSIUM - SERUM 4.5 mmol/L (3.5-5.1)
--- NOTE | 2019-03-03 07:15 | NUR ---
RECEIVED PT IN BED AAOX4 RESP UNLABORED SKIN W/D RLE 3+ EDEMA WRAPPED WITH VLAD WRAP DENIES ANY NEEDS AT THIS TIME
--- NOTE | 2019-03-03 07:15 | NUR ---
RECEIVED PT IN BED EYES CLOSED RESP UNLABORED SKIN W/D COLOR WNL RLE NOTED WITH 3+ EDEMA VLAD WRAP ELEVATED ON PILLOW
[2019-03-03 12:12] VITALS: Ht 182.9 cm; Wt 129.5 kg
[2019-03-03] MEDS ORDERED: BETAPACE 80 MG80 MG PO (15:40)
--- NOTE | 2019-03-03 16:19 | NUR ---
PT STATES HE HAS HAD HIS FLU SHOT FOR THIS YEAR.
--- NOTE | 2019-03-03 17:05 | NUR ---
REVIEWED DISCHARGE INSTRUCTIONS WITH PT STATES UNDERSTANDING COPY GIVEN DCD SALINE LOCK TO TO LT HAND WITH IV CATHETER INTACT SITE FREE OF REDNESS OR EDEMA PT DISCHARGED HOME LEFT UNIT VIA W/C IN STABLE CONDITION WITH ALL PERSONAL BELONGINGS
--- NOTE | 2019-03-05 11:25 | CN ---
PATIENT NAME:YESENIA BYRNES MEDICAL RECORD: [id number] : 58 LOCATION:D. D.2120 ADMIT DATE: 03/02/19 ACCOUNT: [id number] CONSULTING PHYSICIAN: SHANEKA MATTSON MD REFERRING PHYSICIAN: KENYON TIMMONS MD DATE OF CONSULTATION: 03/03/2019 CARDIOLOGY CONSULTATION DIAGNOSES: 1. Paroxysmal atrial fibrillation. 2. Hypertension. 3. Syncope. HISTORY OF PRESENT ILLNESS: Mr. Byrnes was urinating when he had an episode of syncope. He was found to be in atrial fibrillation. He has since converted to sinus rhythm. He did not feel palpitations. He does not have a history of atrial fibrillation. He is on metoprolol, lisinopril for blood pressure. His atrial fibrillation, rate was not fast. He did not have any chest pain. Troponins were negative. He had no ST-T abnormalities with the atrial fibrillation. PHYSICAL EXAMINATION: CONSTITUTIONAL/GENERAL APPEARANCE: Well nourished, well developed, appears stated age. EYES: Lids and conjunctivae noninjected. No discharge. No pallor. ENT: Lips within normal limit. No cyanosis. No pallor. NECK: Carotid arteries, bilateral normal upstroke. No bruits. No thrills. No jugular venous pressure or distention. CERVICAL LYMPH NODES: Nontender. Nonenlarged. THYROID: Not enlarged. No nodules. CARDIOVASCULAR: Precordial exam, nondisplaced. No heaves or pericardial thrills. Rate and rhythm, regular. Heart sounds, normal S1, normal S2. No S3, no gallop, no rub. Systolic murmur, not heard. Diastolic murmur, not heard. RESPIRATORY: Respiratory effort, unlabored. Normal curvature. No thoracic deformity. No chest wall tenderness. Percussion, resonant. Auscultation, clear. No wheezes, no rales, no rhonchi. ABDOMEN: Soft, nondistended, nontender. No abdominal pain, no vomiting and normal appetite. MUSCULOSKELETAL: No joint tenderness, normal gait, normal tone. SKIN: Warm and dry. OVERALL IMPRESSION: Paroxysmal atrial fibrillation. At this time, we will check an echocardiogram to make sure he does not have underlying cardiomyopathy. If the echocardiogram is normal, we will change metoprolol to sotalol, discharge home. TRANSINT:[id number] Voice Confirmation ID: [id number] DOCUMENT ID: [id number] CONSULT REPORT [id number] YESENIA BYRNES JEFFREY MD at 1125 CC: [id number] DICTATION DATE: 03/03/19 1218 HAND CLIPPER: 03/03/19 1626 DIS IN 03/03/19 [place] [id number] [place] [id number]
--- NOTE | 2019-03-05 11:25 | EC ---
PATIENT:YESENIA BYRNES DATE OF SERVICE: 03/02/19 SEX: M MEDICAL RECORD: [id number] DATE OF : 58 LOCATION:D.M2 D.212 AGE OF PATIENT: 58 ADMISSION DATE: 03/02/19 REFERRING PHYSICIAN: INTERPRETING PHYSICIAN: SHANEKA PACHECO MD ECHOCARDIOGRAM REPORT ECHO CHARGES 4 ECHO COMPLETE Date: 03/02/19 CLINICAL DIAGNOSIS: CP ECHOCARDIOGRAPHIC MEASUREMENTS (adult normal given) AC root (d.<3.7cm) 4.2 cm LV Septum d (<1.2 cm> 1.7 cm Valve Excursion 2.1 cm LV Septum (systole) 2.2 cm Left Atria (s.<4.0cm> 4.1 cm LVPW d(<1.2cm) 1.5 cm RV (d.<2.3cm) 2.9 cm LVPW (sytole) 2.2 cm LV diastole(<5.6CM) 4.1 cm MV E-F(>70mm/sec) cm LV systole 2.2 cm LVOT Diameter 2.3 cm MV exc.(>10mm) cm Est.ejection fraction (50-75%) % DOPPLER: LVIT cm/sec A 47.0 cm/sec E 59.0 cm/sec LA cm/sec RVSP mmHg LVOT 103 cm/sec AOP1/2T m/s Asc. Ao 114 cm/sec RVOT 71.0 cm/sec RA cm/sec PA 95.0 cm/sec AV Gradient Peak 5.2 mmHg AV Mean 2.4 mmHg AV Area 3.4 cm MV Gradient Peak 2.6 mmHg MV Mean 0.97 mmHg MV Area cm COMMENTS: Rail Signal Mechanic: Vic QUINONEZOE Solderer Barrel Ribs: 1 Dr. Pacheco TAPE# PACS Pericardial Effusion N DATE OF SERVICE: 03/03/2019 ECHOCARDIOGRAM FINDINGS: 1. Left ventricular chamber size is within normal limits. Left ventricular systolic function is normal. Overall ejection fraction estimated at 55% to 60%. 2. The left atrium is mildly dilated at 4.1 cm. Right atrium and right ventricle chamber sizes are as well mildly dilated. 3. Valvular structures have normal structure and motion. ECHOCARDIOGRAM REPORT [id number] YESENIA BYRNES 4. Doppler interrogation reveals no significant valvular insufficiency or stenosis. 5. No evidence of pericardial effusion or left ventricular thrombus. TRANSINT:[id number] Voice Confirmation ID: [id number] DOCUMENT ID: [id number] SHANEKA PACHECO MD at 1125 CC: [id number] DICTATION DATE: 03/03/19 1218 DIRECTOR BUSINESS INTELLIGENCE: 03/03/19 2018 DIS IN 03/03/19 [place] [id number] [place] [id number]
== END 2019-03-03 17:05 | disposition home or self-care (01) | DRG 312 ==
LOC: D.ER 10:04 → D.M2 11:10
PROVIDERS: Family Medicine; ADMIT Internal Medicine Nephrology; ATTEND Internal Medicine Nephrology
DX: R55 Syncope and collapse (principal); I48.0 Paroxysmal atrial fibrillation; I10 Essential (primary) hypertension; K21.9 Gastro-esophageal reflux disease without esophagitis; E03.9 Hypothyroidism, unspecified; M25.571 Pain in right ankle and joints of right foot; M25.512 Pain in left shoulder; Z86.19 Personal history of other infectious and parasitic diseases